=== PATIENT | male | born 1950 | race Caucasian/White ===

== ENCOUNTER 2018-03-17 20:33 | Emergency (ER) | payer OTHER ==
[2018-03-17] MEDS: SOD CHLORIDE 0.9% 500 ML IV (21:25)
[2018-03-17] MEDS: ONDANSETRON 4 MG INJ IV (21:25)
[2018-03-17 21:28] LABS: ADD MAN DIFF? NO
[2018-03-17 21:35] LABS: WHITE BLOOD COUNT 12.7 10^3/ul (4.8-10.8)
[2018-03-17 21:35] LABS: BASOPHIL # 0.1 10^3/ul (0.0-0.1); BASOPHILS % 0.5 % (0.0-2.0); EOSINOPHILS # 0.3 10^3/ul (0.0-0.5); EOSINOPHILS % 2.5 % (0.0-7.0); HEMATOCRIT 38.1 % (42.0-52.0); HEMOGLOBIN 12.5 g/dl (14.0-18.0); LYMPHOCYTES # 2.9 10^3/ul (0.8-2.9); LYMPHOCYTES % 22.5 % (15.0-51.0); MEAN CORPUSCULAR HEMOGLOBIN 28.4 pg (29.0-33.0); MEAN CORPUSCULAR HGB CONC 32.8 g/dl (32.0-37.0); MEAN CORPUSCULAR VOLUME 86.6 fl (82.0-101.0); MEAN PLATELET VOLUME 9.4 fl (7.4-10.4); MONOCYTE # 1.5 10^3/ul (0.3-0.9); MONOCYTES % 11.8 % (0.0-11.0); NEUTROPHIL # 7.8 10^3/ul (1.6-7.5); NEUTROPHILS % 61.8 % (39.0-77.0); PLATELET COUNT 464 10^3/UL (140-415); RED CELL DISTRIBUTION WIDTH 12.8 % (11.5-14.5)
[2018-03-17 21:44] LABS: ADD UMIC YES; UR ASCORBIC ACID NEGATIVE (NEGATIVE); UR BACTERIA FEW /HPF (NONE SEEN); UR BILIRUBIN (Dip) NEGATIVE (NEGATIVE); UR BLOOD (Dip) 1+ mg/dL (NEGATIVE); UR CLARITY CLEAR (CLEAR); UR COLOR YELLOW (YELLOW); UR GLUCOSE (Dip) NEGATIVE (NEGATIVE); UR KETONES (Dip) NEGATIVE (NEGATIVE); UR LEUKOCYTE ESTERASE (Dip) NEGATIVE Leu/ul (NEGATIVE); UR MUCUS FEW /HPF (NONE SEEN); UR NITRITE (Dip) NEGATIVE (NEGATIVE); UR RBC 1 /HPF (0-5); UR SPECIFIC GRAVITY (Dip) 1.014 (1.003-1.030); UR TOTAL PROTEIN (Dip) NEGATIVE (NEGATIVE); UR UROBILINOGEN (Dip) NEGATIVE (NEGATIVE); UR WBC 2 /HPF (0-5)
[2018-03-17 21:56] LABS: INR 1.05; PROTIME 13.8 Sec (11.9-14.9); PT RATIO 1.1
[2018-03-17 21:57] LABS: ALANINE AMINOTRANSFERASE 20 IU/L (13-69); ALBUMIN 3.7 g/dl (3.3-4.9); ALBUMIN/GLOBULIN RATIO 1.05; ALKALINE PHOSPHATASE 65 IU/L (42-121); ASPARTATE AMINO TRANSFERASE 34 IU/L (15-46); BILIRUBIN,INDIRECT 0.7 mg/dl (0-1.1); BILIRUBIN,TOTAL 0.7 mg/dl (0.2-1.3); BLOOD UREA NITROGEN 15 mg/dl (7-20); CALCIUM 9.2 mg/dl (8.4-10.2); CARBON DIOXIDE 32 mmol/L (21-31); CREATININE 0.84 mg/dl (0.61-1.24); Estimated GFR > 60 mL/min (>60); GLUCOSE 123 mg/dl (70-220); LIPASE 161 U/L (23-300); POTASSIUM 3.4 mmol/L (3.5-5.1); SODIUM 143 mmol/L (135-144); TOTAL PROTEIN 7.2 g/dl (6.1-8.1)
[2018-03-17 22:04] LABS: ANION GAP 10 (5-13); CHLORIDE 101 mmol/L (97-110)
[2018-03-18] MEDS: MINERAL OIL 133 ML ENEMA PR (00:09)
== END 2018-03-18 03:54 | disposition home or self-care (01) ==
LOC: E/R 03-18 03:54
DX: N32.0 Bladder-neck obstruction (principal); N40.0 Benign prostatic hyperplasia without lower urinary tract symptoms; K59.00 Constipation, unspecified; D72.829 Elevated white blood cell count, unspecified; D64.9 Anemia, unspecified; D47.3 Essential (hemorrhagic) thrombocythemia; E87.6 Hypokalemia; E87.3 Alkalosis; I10 Essential (primary) hypertension; E11.9 Type 2 diabetes mellitus without complications; Z79.82 Long term (current) use of aspirin; Z79.4 Long term (current) use of insulin; Z96.642 Presence of left artificial hip joint
CPT/HCPCS: 36415; 74176; 80053; 81001; 83690; 85025; 85610; 93005; 96361; 96374; 99285-25